=== PATIENT | female | born 1955 | race Caucasian/White ===

== ENCOUNTER → 2016-10-02 | Outpatient (CLI) | payer OTHER ==
[~2016-10-02] MED LIST: /CELE20CA OR; /DULO30CA OR; /ESOM40CA OR; AMIT25TA2 OR; CALCIUM OR; CLAR10CA3 PO; CRANPOW2 OR; DETR4CAP OR; DRIS50002 PO; ESTR625TA PO; GABA-283 PO; HYDROCODONE/APAP OR; LIDO5DIS EX; LYRI75CA OR; MENEST OR; MULTIVIT OR; NEUR100C OR; TRAM50TA2 OR; VIT D 2000 OR; VITAMIN C OR; ZANA4CAP OR; [UNRECOGNIZED DRUG - OTHER] OR
--- NOTE | 2016-10-02 15:25 | REP ---
BILATERAL DIGITAL SCREENING MAMMOGRAM: 10/02/2016 CLINICAL HISTORY: Screening examination. She has no current complaints, personal or family history of breast cancer. COMPARISON: Screening mammograms 09/25/2015, 10/24/2014, 10/05/2013, 11/24/2012. FINDINGS: There is a moderate amount of residual fibroglandular tissue remaining which may reduce the sensitivity of mammography. There is a benign intramammary node in the upper outer quadrant of the right breast. Scattered lymph nodes are seen in the axilla. On the MLO retroareolar zone anterior third of the breast, just above the nipple line, there is an area of architectural distortion, which may be superimposed tissues versus a lesion. I cannot confirm any similar finding on the CC view. IMPRESSION: BIRADS ACR category 0, incomplete, additional imaging required. The patient should return for right MLO spot magnified image along with spot magnified CC anterior central breast and a true ML. Ultrasound should be scheduled and performed only at the convenience of the reviewing radiologist. This mammogram was interpreted with the aid of an FDA-approved computer-aided detection system. A. Negative x-ray reports should not delay biopsy if a dominant or clinically suspicious mass is present. B. Four to eight percent of cancers are not identified by x-ray. C. Adenosis and dense breasts may obscure an underlying neoplasm. The patient states she/he had a clinical breast exam in September 2016. The patient letter being requested is M0. BI-RADS/ACR category 0 mammogram, incomplete. Additional imaging and/or prior images are needed before a final assessment can be assigned.
== END ==
LOC: M WHC 14:03
PROVIDERS: ATTEND Nurse Practitioner Women's Health
DX: Z12.31 Encounter for screening mammogram for malignant neoplasm of breast (principal); R92.8 Other abnormal and inconclusive findings on diagnostic imaging of breast

== ENCOUNTER → 2016-10-12 | Outpatient (CLI) | payer OTHER ==
--- NOTE | 2016-10-12 11:20 | REP ---
DIAGNOSTIC MAMMOGRAM RIGHT BREAST: Multiple spot compression views of the right breast is performed and correlated with a recent mammogram 10/02/2016 and compared to other prior exams. The somewhat nodular opacity on the right MLO view compresses out to an unchanged appearance compared to other prior exams. No persistent nodule or architectural distortion is seen on today's diagnostic mammogram. The findings are benign. IMPRESSION: ACR 2 benign. No persistent abnormality on today's spot compression views. Recommend followup mammogram in one year. BI-RADS/ACR category 2 mammogram. Benign finding(s). Routine annual screening mammography (for women over age 40). Patient letter M1. Signed by Karthikeyan Simon MD 10/12/2016 04:35 P
== END ==
LOC: M RAD 09:33
PROVIDERS: ATTEND Nurse Practitioner Women's Health
DX: Z12.31 Encounter for screening mammogram for malignant neoplasm of breast (principal); R92.8 Other abnormal and inconclusive findings on diagnostic imaging of breast

== ENCOUNTER → 2016-11-11 | Outpatient (CLI) | payer OTHER ==
--- NOTE | 2016-11-12 04:57 | REP ---
Clinical: Left pelvic pain . Technique: Transabdominal pelvic ultrasound followed by transvaginal examination for better evaluation of the adnexa with color Doppler evaluation of the ovaries. Findings: Bladder is unremarkable and measures 5.9 x 4.1 x 2.6 cm. Evidence for prior hysterectomy without pelvic fluid or mass lesion. Bilateral ovaries are normal in vascularity without evidence for torsion. Right ovary measures 2.3 x 2.2 x 2.2 cm and includes small cysts up to 15 mm; R I = 0.43 . Left ovary measures 1.4 x 1.3 x 0.8 cm ; R I = 0.67. Tubular fluid filled structures in the left adnexa adjacent to the ovary likely represent hydrosalpinx . Impression: 1. Prior hysterectomy without pelvic mass or fluid. 2. Left hydrosalpinx. Signed by Sinan Em MD 11/12/2016 04:48 A
== END ==
LOC: M WHC 09:21
PROVIDERS: ATTEND Nurse Practitioner Women's Health
DX: Z87.42 Personal history of other diseases of the female genital tract (principal); R10.2 Pelvic and perineal pain

== ENCOUNTER → 2018-04-29 | Outpatient (REF) | payer OTHER | LOC: M SFHCLERA 10:57 | DX: J02.9 Acute pharyngitis, unspecified (principal) ==

== ENCOUNTER → 2018-11-09 | Outpatient (REF) | payer OTHER ==
[~2018-11-09] MED LIST changes: -/CELE20CA OR; -/DULO30CA OR; -/ESOM40CA OR; +CELE1CAP4 OR; +CYMB1CAP5 OR; -DRIS50002 PO; +DRIS50003 PO; -GABA-283 PO; +GABA-845 PO; +NEXI1CAP3 OR
== END ==
LOC: M SFHCLERA 14:24
PROVIDERS: ATTEND Nurse Practitioner Family
DX: J02.9 Acute pharyngitis, unspecified (principal)

== ENCOUNTER → 2018-12-02 | Outpatient (CLI) | payer OTHER ==
--- NOTE | 2018-12-02 15:21 | REPMRS ---
Patient History The patient states she had a clinical breast exam in 11/2018. No known family history of cancer. Taking unspecified hormones for 7 years. Digital Woman Screen Mammo: December 02, 2018 - Exam #: [id number] Bilateral CC and MLO view(s) were taken. Technologist: Simi Gusman, Technologist Prior study comparison: October 05, 2017, digital woman screen mammo performed at [facility]. October 12, 2016, right breast digital mammo diagnostic unilateral, performed at [facility]. October 02, 2016, digital woman screen mammo performed at [facility]. FINDINGS: There are scattered fibroglandular densities. There has been no change in the appearance of the mammogram from the prior studies. There is a mild amount of scattered fibroglandular density which is fairly symmetric. There is no interval development of dominant mass, architectural distortion, or clustered microcalcification suggestive of malignancy. 3-D tomosynthesis shows no additional findings. Assessment: BI-RADS/ACR category 1 mammogram. Negative Mammogram. Recommendation Routine screening mammogram of both breasts in 1 year (for women over age 40). This patient's Lifetime Breast Cancer RIsk is estimated at 5.2 %. This mammogram was interpreted with the aid of an FDA-approved computer-aided dectection system. Electronically Signed By: Jordan Rasmussen MD 12/02/18 [id number]
== END ==
LOC: M WHC 13:53
PROVIDERS: ATTEND Nurse Practitioner Women's Health
DX: Z12.31 Encounter for screening mammogram for malignant neoplasm of breast (principal); Z92.29 Personal history of other drug therapy

== ENCOUNTER → 2019-12-05 | Outpatient (CLI) | payer OTHER ==
--- NOTE | 2019-12-05 14:39 | REPMRS ---
Patient History The patient states she had a clinical breast exam in December 2019.No known family history of cancer. Taking unspecified hormones for 7 years. 3D TOMOSYNTHESIS WAS PERFORMED. [facility] VOLPARA DENSITY B. Digital Woman Screen Mammo: December 05, 2019 - Exam #: [id number] Bilateral CC and MLO view(s) were taken. Technologist: Xiomara Christensen, Technologist Prior study comparison: December 02, 2018, bilateral digital woman screen mammo performed at [facility]. October 05, 2017, digital woman screen mammo performed at [facility]. FINDINGS: There are scattered fibroglandular densities. There has been no change in the appearance of the mammogram from the prior studies. There is a mild amount of residual fibroglandular tissue which is fairly symmetric. There is no interval development of dominant mass, architectural distortion, or clustered microcalcification suggestive of malignancy. Assessment: BI-RADS/ACR category 1 mammogram. Negative Mammogram. Recommendation Routine screening mammogram in 1 year (for women over age 40). This mammogram was interpreted with the aid of an FDA-approved computer-aided dectection system. Electronically Signed By: Karthikeyan Simon MD 12/05/19 [id number]
== END ==
LOC: M WHC 13:10
PROVIDERS: ATTEND Nurse Practitioner Women's Health
DX: Z12.31 Encounter for screening mammogram for malignant neoplasm of breast (principal)

== ENCOUNTER → 2020-12-11 | Outpatient (CLI) | payer OTHER ==
[~2020-12-11] MED LIST changes: +GABA-283 PO; -GABA-845 PO
--- NOTE | 2020-12-11 15:28 | REPMRS ---
Patient History The patient states she had a clinical breast exam in December 2020. No known family history of cancer. Taking unspecified hormones for 8 years. Tomosynthesis is performed. Volpara breast density is b. [facility] lifetime risk of breast cancer 4.8%. Patient states no breast complaints today. Patient has signed MRS History Sheet. Digital Woman Screen Mammo: December 11, 2020 - Exam #: [id number] Bilateral CC and MLO view(s) were taken. Technologist: Marjorie Silva, Technologist Prior study comparison: December 05, 2019, bilateral digital woman screen mammo performed at [facility]. December 02, 2018, bilateral digital woman screen mammo performed at [facility]. FINDINGS: The breast tissue is heterogeneously dense. This may lower the sensitivity of mammography. There has been no change in the appearance of the mammogram from the prior studies. There is a moderate amount of residual fibroglandular tissue which is fairly symmetric. There is no interval development of dominant mass, areas of architectural distortion, or clustered microcalcification typical of malignancy. Assessment: BI-RADS/ACR category 1 mammogram. Negative Mammogram. Recommendation Routine screening mammogram in 1 year (for women over age 40). This mammogram was interpreted with the aid of an FDA-approved computer-aided dectection system. Electronically Signed By: Karthikeyan Simon MD 12/11/20 [id number]
== END ==
LOC: M WHC 14:02
PROVIDERS: ATTEND Nurse Practitioner Women's Health
DX: Z12.31 Encounter for screening mammogram for malignant neoplasm of breast (principal)

== ENCOUNTER → 2021-12-11 | Outpatient (REF) | payer MEDICARE, OTHER | LOC: M LAB REF 19:45 | PROVIDERS: ATTEND Physician Assistant | DX: N39.0 Urinary tract infection, site not specified (principal) ==

== ENCOUNTER → 2021-12-30 | Outpatient (CLI) | payer MEDICARE | LOC: M WHC 10:41 | PROVIDERS: ATTEND Internal Medicine Cardiovascular Disease | DX: Z12.31 Encounter for screening mammogram for malignant neoplasm of breast (principal) ==

== ENCOUNTER → 2022-01-18 | Outpatient (REF) | payer MEDICARE | LOC: M WUC 17:56 | PROVIDERS: ATTEND Physician Assistant | DX: N39.0 Urinary tract infection, site not specified (principal) ==

== ENCOUNTER → 2022-02-26 | Outpatient (REF) | payer MEDICARE, OTHER | LOC: M SFHCWAGY 13:46 | PROVIDERS: ATTEND Nurse Practitioner Family | DX: Z12.4 Encounter for screening for malignant neoplasm of cervix (principal); R87.610 Atypical squamous cells of undetermined significance on cytologic smear of cervix (ASC-US) | CPT/HCPCS: 87624; G0123 ==

== ENCOUNTER → 2023-03-01 | Outpatient (CLI) | payer MEDICARE, OTHER ==
[~2023-03-01] MED LIST changes: -GABA-283 PO; +GABA-284 PO
== END ==
LOC: M WHC 11:26
PROVIDERS: ATTEND Nurse Practitioner Family
DX: Z12.31 Encounter for screening mammogram for malignant neoplasm of breast (principal)

== ENCOUNTER → 2023-03-01 | Outpatient (REF) | payer MEDICARE, OTHER | LOC: M SFHCWAGY 17:20 | PROVIDERS: ATTEND Nurse Practitioner Family | DX: Z12.4 Encounter for screening for malignant neoplasm of cervix (principal) | CPT/HCPCS: 87624; G0123 ==

== ENCOUNTER → 2023-04-30 | Outpatient (CLI) | payer MEDICARE, MEDICAID ==
[2023-04-30 16:19] LABS: BASO # 0.1 10^3/uL (0.0-0.2); BASO % 0.9 % (0.0-1.0); EOS % 0.6 % (0.0-3.0); HEMATOCRIT 39.7 % (36.0-47.0); HEMOGLOBIN 13.2 g/dl (12.0-15.5); LYMPH # 3.4 10^3/uL (1.5-5.0); LYMPH % 48.5 % (24.0-44.0); MEAN CORPUSCULAR HEMOGLOBIN 30.8 pg (27.0-33.0); MEAN CORPUSCULAR HGB CONC 33.2 g/dl (32.0-36.5); MEAN CORPUSCULAR VOLUME 92.8 fl (80.0-96.0); MONO # 0.5 10^3/uL (0.0-0.8); MONO % 6.6 % (2.0-8.0); NEUTROPHILS % 43.1 % (36.0-66.0); PLATELET COUNT, AUTOMATED 320 10^3/uL (150-450); RED BLOOD COUNT 4.28 10^6/uL (4.00-5.40); WHITE BLOOD COUNT 6.9 10^3/uL (4.0-10.0)
[2023-04-30 16:24] LABS: ERYTHROCYTE SEDIMENTATION RATE 18 mm/hr (0-30)
[2023-05-06 18:10] LABS: ANTINUCLEAR ANTIBODIES DIRECT Negative (Negative); HLA-B27 Negative (.)
== END ==
LOC: M PLALAB 14:50
PROVIDERS: ATTEND Orthopaedic Surgery
DX: M23.222 Derangement of posterior horn of medial meniscus due to old tear or injury, left knee (principal); M25.562 Pain in left knee; M17.12 Unilateral primary osteoarthritis, left knee

== ENCOUNTER → 2023-07-12 | Outpatient (REF) | payer MEDICARE, MEDICAID | LOC: M LAB REF 16:05 | PROVIDERS: ATTEND Student in an Organized Health Care Education/Training Program | DX: R30.0 Dysuria (principal) ==

== ENCOUNTER → 2024-04-20 | Outpatient (CLI) | payer MEDICARE, MEDICAID | LOC: M WHC 15:04 | PROVIDERS: ATTEND Nurse Practitioner Family | DX: Z12.31 Encounter for screening mammogram for malignant neoplasm of breast (principal); R92.323 Mammographic fibroglandular density, bilateral breasts ==

== ENCOUNTER → 2025-01-06 | Outpatient (REF) | payer MEDICARE, MEDICAID | LOC: M LAB REF 20:21 | PROVIDERS: ATTEND Nurse Practitioner Family | DX: R19.7 Diarrhea, unspecified (principal) ==

== ENCOUNTER → 2025-04-23 | Outpatient (CLI) | payer MEDICARE, MEDICAID ==
[~2025-04-23] MED LIST changes: +AMLO1TAB25 PO; +ATOR40TA75 PO; +AZEL1SPR4 NARES; +B-12100010 PO; +CETI10TA4 PO; +CRANBERRY400 MG PO; +DULO1CAP5 PO; +DULO1CAP6 PO; +FLON1SPR; +GABA-1490 PO; +HYDR50TA70 PO; +LOSA100T46 PO; +MELO7.5T35 PO; +MONT10TA97 PO; +MULT-40 PO; +MYRB25TA PO; +NEXI20CA PO; +OMEG350C PO; +PROBCAP14 PO; +SYST1SOL4 OU; +THERTAB52 PO; +TIZA4CAP PO; +TRAM50TA2 PO
== END ==
LOC: M WHC 11:33
PROVIDERS: ATTEND Nurse Practitioner Family
DX: Z12.31 Encounter for screening mammogram for malignant neoplasm of breast (principal); R92.323 Mammographic fibroglandular density, bilateral breasts